=== PATIENT | female | born 1985 | race Caucasian/White ===

== ENCOUNTER 2022-03-13 06:44 | Inpatient (IN) ==
--- NOTE | 2022-03-02 14:07 | History & Physical Report ---
Date of Service March 02, 2022 Assessment & Plan (1) with 39 completed weeks gestation: (2) Breech presentation: Plan: Plan elective . r/b/se of surgery discussed including bleeding, transfusion, infection, poor wound healing, damage to surrounding structures with need for further surgery or hospitalization, injury to baby, heart attack, blood clot, stroke, . Consent reviewed and signed, questions answered. History of Present Illness Chief Complaint: breech Primary Care Provider: Vinayak Armenta DO Patient is a 37yowf at 39 5/7 weeks who presents to labor and delivery for primary c/s for breech. She has declined version. has been essentially uncomplicated. and Delivery Plans AMA Weekly NSTs @ 36 weeks Breech FOB sister had a persistent PDA--had to surgery to close. LEEP 09/06--germaine 3-*NEEDS PAP AT [facility] has had covid vaccine and booster. OB Labs: Blood Type A Positive 08/06/21 Antibody Screen NEGATIVE 08/06/21 Hemoglobin 12.1 g/dL (12.0-16.0) 12/22/21 Hematocrit 33.5 % (37-47) L 12/22/21 Mean Corpuscular Volume 83.8 fL (80-100) 08/06/21 Platelet Count 257 K/uL (130-400)B 08/06/21 Rubella IgG Antibody Immune (Immune) 08/06/21 Rapid Plasma Reagin Nonreactive (Nonreactive) 08/06/21 Hepatitis B Surface Antigen Neg (Neg) 08/06/21 HIV (1&2) Ab and P24 Ag, 4th Gener Neg (Neg) 08/06/21 Glucose 1 Hour 50 gm Load 105 mg/dl (70-130) 12/22/21 Maternal Serum Alpha Fetoprotein 33.6 ng/mL 09/29/21 OB Optional Labs: Chlamydia trachomatis RNA NOT DETECTED (NOT DETECTED) 08/06/21 Neisseria gonorrhoeae RNA NOT DETECTED (NOT DETECTED) 08/06/21 Thyroid Stimulating Hormone (TSH) 1.370 uIu/ml (0.300-4.500) 10/03/18 Alpha Fetoprotein Triple Screen SEE NOTE 09/29/21 Labs Reviewed: low risk panorama--akh cf/sma neg akh gbs neg Allergies Allergy/AdvReac Type Severity Reaction Status Date / Time No Known Drug Allergies Allergy Verified 03/02/22 15:46 latex AdvReac Mild Rash Verified 03/02/22 15:46 Home Medications Medication Instructions Recorded Confirmed Type bupropion HCl 200 mg tablet,12 hr 200 mg PO QAM 10/08/19 03/02/22 History sustained-release hydroxyzine HCl 50 mg tablet 50 mg PO HS 10/08/19 03/02/22 History prenat.vits,cheyanne,uyy-otle-xjwoe PO 07/29/21 03/02/22 History Patient History Medical History (Updated 03/02/22 @ 14:11 by Jailene Arzate MD, FACOG) Anxiety GERMAINE III (cervical intraepithelial neoplasia grade III) with severe dysplasia 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 History of chicken pox Ovarian cyst Surgical History (Updated 03/02/22 @ 14:10 by Jailene Arzate MD, FACOG) H/O LEEP Hx of oral surgery 09/06 Family History Uncle Colorectal cancer Mother Hypertension Grandfather (Maternal) Pancreatic cancer Grandmother (Maternal) Stroke Hypertension Other Dyslipidemia No significant family history Denies family history of Ovarian cancer Breast cancer Social History Smoking Status: Never smoker Second Hand Exposure: No; Hx Alcohol Use: No Hx Substance Use: Yes Preferred Language: Latvian Communication Ability: Effective Visual Impairment: No Limitations Hearing Ability: Normal Beliefs That Will Affect Care: None marital status: marital status details: Naveen Guzman (43)- [phone] Current Living Situation: Spouse Current Living Situation Comment: lives with spouse, 2 dogs current occupational status: employed 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
--- NOTE | 2022-03-10 08:40 | Anesthesiology Consultation ---
Date of Service March 10, 2022 Assessment & Plan (1) Encounter for pre-operative examination: - COVID screening: Per basting machine operator on 03/09/2022: Travel screen negative, no known COVID-19 positive contacts or current COVID-19 related symptoms in past 2 weeks. Pt vaccinated. Surgeon arranging preop COVID testing, scheduled 03/11/2022. Awaiting results. 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 History Surgery Operation Date: 03/13/22 08:50 Proposed Procedures p Section (Delivery of Baby Through Abdominal Incision) - Jailene Arzate MD, FACOG Height/Weight Height: 5 ft 0.75 in Weight: 67.585 kg Allergies Allergy/AdvReac Type Severity Reaction Status Date / Time No Known Drug Allergies Allergy Verified 03/09/22 15:03 latex AdvReac Mild Rash Verified 03/09/22 15:03 Medications Home Medications Medication Instructions Recorded Confirmed Last Taken hydroxyzine HCl 50 mg tablet 50 mg PO HS 10/08/19 03/09/22 10/07/19 bupropion HCl 150 mg 24 hr tablet, 150 mg PO QAM 03/09/22 03/09/22 Unknown extended release vit no.95-ferrous 0.5 tab PO BID 03/09/22 03/09/22 Unknown fumarate 28 mg-folic acid 800 mcg tablet () Past Medical History Medical History Anxiety GERMAINE III (cervical intraepithelial neoplasia grade III) with severe dysplasia Depression 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 History of motion sickness Past Family History Family History Uncle Colorectal cancer Mother Hypertension Grandfather (Maternal) Pancreatic cancer Grandmother (Maternal) Hypertension Stroke Other Dyslipidemia No family history of adverse response to anesthesia No significant family history Denies family history of Ovarian cancer Breast cancer Past Surgical History Surgical History H/O LEEP x2 (local anesthesia) Hx of oral surgery 09/06 Social History Smoking Status: Never smoker Do You Dip or Chew Tobacco: No Hx Alcohol Use: No Hx Substance Use: Yes (recreational) substance use type: marijuana Last Used Substance Other:: april 2021
[~2022-03-13 06:44] MED LIST: CITRIC ACID/SODIUM CITRATE 15 ML UDC PO SCH; LACTATED RINGER'S 1,000 ML IV SCH; ceFAZolin 2,000 MG in SYRINGE 0 ML IV SCH
[2022-03-13] MEDS ORDERED: LACTATED RINGER'S 1,000 ML IV SCH ×2 (07:00→10:45)
--- NOTE | 2022-03-13 07:19 | History & Physical Bridge Note ---
Date of Service March 13, 2022 History & Physical Bridge Note I have examined the patient, reviewed the History & Physical and in the interval since the performance of the History & Physical I have noted the following changes of clinical significance: no changes noted, breech confirmed by ultrasound.
[2022-03-13 07:23] LABS: Basophils # (auto) 0.02 K/uL (0-0.2); Basophils % (auto) 0.2 %; Eosinophils # (auto) 0.06 K/uL (0-0.5); Eosinophils % (auto) 0.6 %; Hematocrit (blood only) 35.4 % (37-47); Hemoglobin 12.4 g/dL (12.0-16.0); Immature Granulocytes # (auto) 0.02 K/uL (0.00-0.02); Immature Granulocytes % (auto) 0.2 %; Lymphocytes # (auto) 2.42 K/uL (1.2-3.4); Mean Corpuscular Hemoglobin 30.5 pg (25-34); Mean Platelet Volume 11.2 fL (7.4-10.4); Monocytes # (auto) 0.75 K/uL (0.11-0.59); Monocytes % (auto) 7.1 %; Neutrophils # (auto) 7.24 K/uL (1.4-6.5); Neutrophils % (auto) 68.9 %; Platelet Count 195 K/uL (130-400); RDW Coefficient of Variation 13.7 % (11.5-14.5); RDW Standard Deviation 43.4 fL (36.4-46.3); Red Blood Count 4.07 M/uL (4.2-5.4); White Blood Count 10.51 K/uL (4.8-10.8)
[2022-03-13 07:44] LABS: Appearance Urine Cloudy (Clear); Bacteria Urine Automated 4+ (Negative); Bilirubin Urine Negative (Negative); Blood Urine Negative (Negative); Color Urine Yellow; Epithelial Cell Urine Auto >30 /lpf (0-5); Glucose Urine UA Negative (Negative); Ketones Urine 2+ (Negative); Leukocyte Esterase Urine 3+ (Negative); Nitrite Urine Negative (Negative); Protein Urine Negative (Negative); RBC Urine Automated 0-4 /hpf (0-4); Specific Gravity Urine 1.015 (1.000-1.030); Urobilinogen Urine Negative (Negative); WBC Urine Automated >30 /hpf (0-5); pH Urine 5.5 (4.5-7.5)
[2022-03-13] MEDS ORDERED: MoRPHine SULFATE PF 1 MG/ML 10 ML AMP/VIAL ONE (09:18)
[2022-03-13] MEDS ORDERED: OXYTOCIN 10 UNITS/ML VIAL ONE (09:20)
[2022-03-13] MEDS ORDERED: ONDANSETRON INJ 2 MG/ML 2 ML VIAL ONE (10:04)
[2022-03-13] MEDS ORDERED: KETOROLAC 30 MG/ML VIAL ONE (10:04)
[2022-03-13] MEDS ORDERED: OXYTOCIN 10 UNITS/ML 10ML VIAL ONE ×2 (10:04→10:05)
[2022-03-13] MEDS ORDERED: PHENYLEPHRINE 100MCG/ML 5ML SYR ONE (10:04)
[2022-03-13] MEDS ORDERED: CARBOPROST TROMETHAMINE 250 MCG/ML AMPUL IM ONE (10:07)
--- NOTE | 2022-03-13 10:20 | Operative Report ---
PG Post Operative Report Pre & Post Diagnosis Operation Date: 03/13/22 08:50 Pre-Op Diagnosis: 1. at 39 weeks 2. Breech Presentation Post-Op Diagnosis: Same I identified the patient and participated in the time-out.: Yes Procedure Operation Date: 03/13/22 08:50 Actual Procedures p Primary low transverse Section with the of a live male child at 0943 - Jailene Arzate MD, FACOG Surgeon Jailene Arzate MD, FACOG Iron Erector Cruz Garrison, PGY 1 Estimated Blood Loss 600 Findings Consistent with Post-Op Diagnosis viable male , rsa, Apgars 8/9. nl uterus/tubes/ovs bilaterally Fluids 1000cc Specimens placenta Drains lincoln Anesthesia Type Spinal Complications none Disposition Accompanied Patient To Recovery: Yes Disposition: L&D Indications at 39 5/7 weeks with breech presentation Description of Procedure The patient was taken to the operating room where she was identified verbally and by bracelet. She was seated on the operating table where a spinal anesthe tic was placed by anesthesia. She was then placed in the supine position with a leftward tilt. A Lincoln catheter was placed sterilely. the patient was prepped and draped in a normal standard fashion. the anesthetic was tested and found to be adequate. A time-out was held, identifying correct patient, procedure, positioning and preoperative antibiotics. There were no concerns. A Pfannenstiel skin incision was made with a knife and taken down to the underlying layer of fascia with the knife and Bovie electrocautery. Bleeding was attended to with the Bovie. The fascia was incised in the midline with the knife and taken out laterally with scissors. The superior edge of the fascial incision was grasped, elevated and the underlying layer of rectus muscle was taken off bluntly and with scissors. In a similar fashion, the inferior edge of the fascial incision was grasped, elevated and the underlying layer of rectus muscle was taken off bluntly and with scissors. The muscles were bluntly in the midline. The peritoneum was entered bluntly. The incision was then stretched. The bladder blade was placed. The vesicouterine peritoneum was identified, entered with scissors and taken out laterally with scissors. The bladder flap was created digitally A hysterotomy incision was scored with a knife and the incision was stretched superiorly and inferiorly with the operato r's fingers. The operators hand was placed into the incision and the head was delivered atraumatically. No nuchal cord. The nose and mouth were bulb suctioned. the rest of the was then delivered without difficulty. The nose and mouth were again bulb suctioned. The cord was clamped and cut and the was then handed off to the awaiting behaviorist for drying and attention. Cord blood and segment were obtained. The placenta was Manually extracted. The uterus was exteriorized and cleared of all clot and debris with moistened laparotomy sponges. The hysterotomy incision was repaired in two layers, the first in a running locked layer, the second in an imbricating layer. Hemostasis was noted to be good. Posterior cul-de-sac was irrigated and cleared of all clot and debris. The hysterotomy incision was again inspected and found to be hemostatic. the uterus was reinteriorized. Hysterotomy incision was again inspected and found to be hemostatic. Rectus muscles were reapproximated with several interrupted stitches of 0 Vicryl. The fascia was then reapproximated with 0 Vicryl starting at the edges and meeting in the midline. The subcuticular tissues were copiously irrigated and bleeding was attended to with cautery. The skin was then closed with 4-0 Vicryl in a subcuticular fashion. All sponge, lap and needle counts were correct x 2. Patient taken to the recovery room in stable condition. I attest to the content of the Intraoperative Record and any orders documented therein. Any exceptions are noted below. OB Procedure Charges [id number]
[2022-03-13 10:22] LABS: Base Excess Cord Arterial Bld -2.4 mEq/L (-9-1.8); CO2 Cord Arterial Blood 65 mmHg (39.1-73.5); HCO3 Cord Arterial Blood 27 mmol/L (19.7-28.5); PO2 Cord Arterial Blood 12 mmHg (4.1-31.7); pH Cord Arterial Blood 7.23 (7.1-7.38)
[2022-03-13] MEDS ORDERED: PROMETHAZINE HCL 6.25 MG in SODIUM CHLORIDE 0.9% 50 ML IV PRN (10:25)
[2022-03-13] MEDS ORDERED: LACTATED RINGER'S 500 ML IV PRN (10:25)
[2022-03-13] MEDS ORDERED: MoRPHine SULFATE PF 1 MG/ML 10 ML AMP/VIAL INT SPINAL ONE (10:25)
[2022-03-13] MEDS ORDERED: NALOXONE HCL 0.08 MG in SYRINGE 1.8 ML IV PRN (10:25)
[2022-03-13] MEDS ORDERED: diphenhydrAMINE 50 MG/ML VIAL IV PRN (10:25)
[2022-03-13] MEDS ORDERED: NALOXONE HCL 1 MG in SODIUM CHLORIDE 0.9% 1000ML 1,000 ML IV PRN (10:25)
[2022-03-13] MEDS ORDERED: MoRPHine SULFATE 2 MG/ML CARP IV PRN (10:25)
[2022-03-13] MEDS ORDERED: ePHEDrine sulfate 50 MG/ML AMP IV PRN (10:25)
[2022-03-13] MEDS ORDERED: NALOXONE HCL 0.4 MG/1 ML VIAL/CARP IV PRN (10:25)
[2022-03-13] MEDS ORDERED: NALBUPHINE HCL INJ 10 MG/ML AMP IV PRN (10:25)
[2022-03-13] MEDS ORDERED: KETOROLAC 30 MG/ML VIAL IV PRN (10:26)
[2022-03-13 10:28] LABS: Base Excess Cord Venous Blood -1.5 mEq/L (-7.7-1.9); Cord Venous Blood HCO3 27 mmol/L (18.4-26.8); Cord Venous Blood PCO2 58 mmHg (30.4-57.2); Cord Venous Blood PO2 11 mmHg (14.1-43.3); Cord Venous Blood pH 7.27 (7.20-7.44)
--- NOTE | 2022-03-13 10:28 | Anesthesiology Progress Note ---
Date of Service March 13, 2022 Anesthesia Post Procedure Vital Signs Vital Signs: Temp Pulse Resp BP Pulse Ox 03/13/22 10:25 77 97 03/13/22 10:21 74 97/63 L 03/13/22 10:20 77 95 03/13/22 10:19 76 93 03/13/22 10:16 75 100/60 03/13/22 10:15 78 96 03/13/22 09:16 83 98 03/13/22 07:20 36.7 C 82 16 107/67 03/13/22 07:05 82 107/67 Transfer of Care Handoff Completed per policy Notes Mental Status: alert / awake / arousable Nausea / Vomiting: adequately controlled Pain: adequately controlled Airway Patency, RR, SpO2: stable & adequate BP & HR: stable & adequate Hydration State: stable & adequate Neuraxial Anesthesia: was administered and sensory block is resolving Anesthetic Complications: no major complications apparent and Pt Satisfied with anesthetic care
[2022-03-13] MEDS ORDERED: SODIUM CHLORIDE 0.9% 1000ML 1,000 ML IV SCH (10:30)
[2022-03-13] MEDS ORDERED: DC INTRASPINAL MORPHINE SCH (10:30)
[2022-03-13] MEDS ORDERED: NO NARCOTICS OR SEDATIVES SCH (10:30)
[2022-03-13 10:31] LABS: O2 Saturation Cord Venous Bld < 60.0 % (<68); Oxygen Sat Cord Arterial Blood < 60.0 % (<60)
[2022-03-13] MEDS ORDERED: SENNA 8.6 MG TAB PO PRN (10:45)
[2022-03-13] MEDS ORDERED: MAGNESIUM HYDROXIDE SUSP 30 ML UDC PO PRN (10:45)
[2022-03-13] MEDS ORDERED: ONDANSETRON INJ 2 MG/ML 2 ML VIAL IV PRN (10:45)
[2022-03-13] MEDS ORDERED: DIPHTHERIA/TETANUS/PERTUSSIS 0.5 ML SYR/VIAL IM ONE (10:45)
[2022-03-13] MEDS ORDERED: BENZOCAINE 20% AER SPR 82.5 GM CAN EXT PRN (10:45)
[2022-03-13] MEDS ORDERED: HYDROCORTISONE ACETATE 25 MG SUPP PR PRN (10:45)
[2022-03-13] MEDS ORDERED: MEPERIDINE HCL 50 MG/ML CARP IV PRN (10:45)
[2022-03-13] MEDS ORDERED: OXYTOCIN 20 UNITS in LACTATED RINGER'S 1,000 ML IV SCH (11:00)
[2022-03-13] MEDS: SIMETHICONE 80 MG CHEW PO SCH ×3 (17:39→21:17)
[2022-03-13] MEDS: DOCUSATE SODIUM 100 MG CAP PO SCH (20:32)
[2022-03-13] MEDS: IBUPROFEN 600 MG TAB PO PRN (21:40)
[2022-03-14] MEDS: IBUPROFEN 600 MG TAB PO PRN ×3 (04:24→16:22)
[2022-03-14] MEDS ORDERED: diphenhydrAMINE Capsule 25 MG CAP PO PRN (04:26)
[2022-03-14] MEDS ORDERED: PROMETHAZINE HCL 25 MG in SODIUM CHLORIDE 0.9% 50 ML IV PRN (04:26)
[2022-03-14] MEDS ORDERED: diphenhydrAMINE 50 MG/ML VIAL IV PRN (04:26)
[2022-03-14] MEDS ORDERED: KETOROLAC 30 MG/ML VIAL IV PRN (04:26)
--- NOTE | 2022-03-14 06:16 | Obstetrical Progress Note ---
Date of Service <Oscar Garrison MD - Last Filed: 03/14/22 08:29> March 14, 2022 Assessment & Plan <Oscar Garrison MD - Last Filed: 03/14/22 08:29> (1) delivery delivered: 37 yo now POD1 from [facility] at 39wk5d for breech presentation -Continue routine care -Vitals reviewed- HDS, afebrile -Encourage ambulation -Encourage -Pain control with ibuprofen, oxycodone PRN -Hgb 12.5, stable <Faheem Bland MD - Last Filed: 03/17/22 08:24> (1) delivery delivered: Subjective <Oscar Garrison MD - Last Filed: 03/14/22 08:29> Ambulation: ambulating normally Voiding: no voiding problems (lincoln removed earlier this AM) Passing Gas:: Yes Diet Tolerance:: regular diet Lochia:: Small Feeding Type:: bottle feeding (pumping) Current Pain Level(1-10): 0 Pt doing well overall, no acute complaints or distress. Pain well controlled with medication. Review of Systems Denies fever/chills. Denies dyspnea, cough. Denies chest pain. Denies breast pain or discharge. Denies dysuria. Denies headache. Denies back pain. Physical Exam <Oscar Garrison MD - Last Filed: 03/14/22 08:29> General: Alert, oriented, no acute distress Cardiac: Regular rate and rhythm, normal S1, S2. No murmurs noted. Respiratory: Clear to auscultation b/l with good air flow entry, symmetric chest rise and fall. No wheezes or crackles. No increased work of breathing or accessory muscle use. Abdomen: Soft, nontender, nondistended. Fundus firm and palpable at 2 cm below umbilicus. Surgical dressing clean, dry and intact without overlying erythema, warmth or drainage. No guarding or rebound. Skin: No rashes or lesions Extremities: Warm, dry and well-perfused with capillary refill <2s b/l. No lower extremity edema, erythema or swelling, no calf tenderness b/l Results & Data ([facility]) <Oscar Garrison MD - Last Filed: 03/14/22 08:29> Vital Signs (Past 12 Hours) Vital Signs Temp Pulse Resp BP Pulse Ox 03/14/22 04:45 36.8 C 74 18 96/63 L 95 03/14/22 04:00 18 98 03/14/22 03:00 18 99 03/14/22 02:00 18 98 03/14/22 01:00 18 96 03/14/22 00:00 36.4 C L 77 18 94/60 L 95 03/13/22 23:00 18 95 03/13/22 22:09 18 100 03/13/22 21:30 18 95 03/13/22 20:30 18 97 03/13/22 19:30 36.8 C 76 18 99/65 L 100 03/13/22 18:19 16 100 <Faheem Bland MD - Last Filed: 03/17/22 08:24> Co-Signing Physician Notes Patient seen and evaluated and agree with the above findings and plan. Routine care. Resident Activity Tracking <Oscar Garrison MD - Last Filed: 03/14/22 08:29> Resident Involvement: Resident Care Provided Care Provided: OB Delivery
[2022-03-14] MEDS: oxyCODONE/ACETAMINOPHEN 5mg/325mg TAB PO PRN ×4 (07:33→20:46)
[2022-03-14] MEDS: FERROUS SULFATE 325 MG TAB PO SCH (07:33)
[2022-03-14] MEDS: DOCUSATE SODIUM 100 MG CAP PO SCH ×2 (07:33→20:46)
[2022-03-14] MEDS: PRENATAL VITAMIN 1 TAB PO SCH (07:33)
[2022-03-14] MEDS: SIMETHICONE 80 MG CHEW PO SCH ×4 (07:33→20:46)
[2022-03-14 08:06] LABS: Basophils # (auto) 0.03 K/uL (0-0.2); Basophils % (auto) 0.2 %; Eosinophils % (auto) 0.8 %; Hematocrit (blood only) 35.8 % (37-47); Hemoglobin 12.5 g/dL (12.0-16.0); Immature Granulocytes # (auto) 0.03 K/uL (0.00-0.02); Immature Granulocytes % (auto) 0.2 %; Lymphocytes # (auto) 2.14 K/uL (1.2-3.4); Lymphocytes % (auto) 16.5 %; Mean Corpuscular Hemoglobin 30.9 pg (25-34); Mean Corpuscular Hgb Conc 34.9 g/dL (32-36); Mean Corpuscular Volume 88.6 fL (80-100); Mean Platelet Volume 11.7 fL (7.4-10.4); Monocytes # (auto) 0.82 K/uL (0.11-0.59); Monocytes % (auto) 6.3 %; Neutrophils # (auto) 9.85 K/uL (1.4-6.5); Platelet Count 207 K/uL (130-400); RDW Coefficient of Variation 13.8 % (11.5-14.5); RDW Standard Deviation 45.2 fL (36.4-46.3); Red Blood Count 4.04 M/uL (4.2-5.4); White Blood Count 12.97 K/uL (4.8-10.8)
[2022-03-14] MEDS: buPROPion XL 150 MG TABCR PO SCH (10:18)
[2022-03-14] MEDS ORDERED: bisacodyL 5 MG TABEC PO SCH (20:00)
[2022-03-14] MEDS ORDERED: hydrOXYzine HCl 25 MG TAB PO SCH ×2 (21:00)
[2022-03-15] MEDS: IBUPROFEN 600 MG TAB PO PRN ×3 (00:54→10:51)
[2022-03-15 06:21] LABS: Hematocrit (blood only) 31.4 % (37-47); Hemoglobin 10.9 g/dL (12.0-16.0)
[2022-03-15] MEDS: PRENATAL VITAMIN 1 TAB PO SCH (07:47)
[2022-03-15] MEDS: buPROPion XL 150 MG TABCR PO SCH (07:48)
[2022-03-15] MEDS: oxyCODONE/ACETAMINOPHEN 5mg/325mg TAB PO PRN (07:48)
[2022-03-15] MEDS: SIMETHICONE 80 MG CHEW PO SCH (07:48)
[2022-03-15] MEDS: FERROUS SULFATE 325 MG TAB PO SCH (07:48)
[2022-03-15] MEDS: DOCUSATE SODIUM 100 MG CAP PO SCH (07:48)
--- NOTE | 2022-03-15 08:19 | Obstetrical Progress Note ---
Date of Service March 15, 2022 Assessment & Plan (1) delivery delivered: Doing well. Plan d/c. A+. Instructions given. Call with concerns. Subjective Ambulation: ambulating normally Voiding: no voiding problems Passing Gas:: Yes Diet Tolerance:: regular diet Lochia:: Small Feeding Type:: breast feeding Pain controlled. Notes some occasional chest pressure and back pain. Attributes both to the bed. Feels overall well. Physical Exam Constitutional WD/WN, vitals as above Respiratory normal respiratory effort, lungs clear to auscultation Cardiovascular RRR, no murmur, no edema Extremities: no calf tenderness and no edema Gastrointestinal (Abdomen) soft, nt, nd, ff/nt at u incision c/d/i Psychiatric A+Ox3, euthymic affect Results & Data ([facility]) Vital Signs (Past 12 Hours) Vital Signs Temp Pulse Resp BP Pulse Ox 03/15/22 01:00 36.4 C L 65 18 100/68 97 03/14/22 20:45 36.9 C 70 20 105/69 97
[2022-03-15] MEDS ORDERED: bisacodyL 10 MG SUPP PR PRN (10:11)
--- NOTE | 2022-03-17 07:52 | Discharge Summary ---
Date of Service March 17, 2022 Admission HPI Per Admitting Provider Patient is a 37yowf at 39 5/7 weeks who presents to labor and delivery for primary c/s for breech. She has declined version. has been essentially uncomplicated. and Delivery Plans AMA Weekly NSTs @ 36 weeks Breech FOB sister had a persistent PDA--had to surgery to close. LEEP 09/06--beth 3-*NEEDS PAP AT [facility] has had covid vaccine and booster. OB Labs: Blood Type A Positive 08/06/21 Antibody Screen NEGATIVE 08/06/21 Hemoglobin 12.1 g/dL (12.0-16.0) 12/22/21 Hematocrit 33.5 % (37-47) L 12/22/21 Mean Corpuscular Volume 83.8 fL (80-100) 08/06/21 Platelet Count 257 K/uL (130-400) 08/06/21 Rubella IgG Antibody Immune (Immune) 08/06/21 Rapid Plasma Reagin Nonreactive (Nonreactive) 08/06/21 Hepatitis B Surface Antigen Neg (Neg) 08/06/21 HIV (1&2) Ab and P24 Ag, 4th Gener Neg (Neg) 08/06/21 Glucose 1 Hour 50 gm Load 105 mg/dl (70-130) 12/22/21 Maternal Serum Alpha Fetoprotein 33.6 ng/mL 09/29/21 OB Optional Labs: Chlamydia trachomatis RNA NOT DETECTED (NOT DETECTED) 08/06/21 Neisseria gonorrhoeae RNA NOT DETECTED (NOT DETECTED) 08/06/21 F Thyroid Stimulating Hormone (TSH) 1.370 uIu/ml (0.300-4.500) 10/03/18 Alpha Fetoprotein Triple Screen SEE NOTE 09/29/21 Labs Reviewed: low risk panorama--ak cf/sma neg [facility] gbs neg Discharge Data Consultations 03/13/22 06:57 Consult Anesthesiology Stat Procedures Performed Operation Date: 03/13/22 08:50 Actual Procedures p Section with the of a live male child at 0943 - Jailene Arzate MD, [facility] Hospital Course (1) delivery delivered: (2) Breech presentation: Patient was admitted and underwent a primary low transverse without complications. NOrmal anatomy noted. /postop course uncomplicated. Tolerated regular diet, voided after removal of lincoln, tolerated pain with oral pain meds, ambulated. She was d/c home on day 2. Stable h/h. Coding Level of Care Code None Diagnoses delivery delivered O82 Breech presentation O32.1XX0
== END 2022-03-15 12:00 | disposition home or self-care (01) | DRG 788 ==
LOC: 4S1 06:44 → EDSTATUS 08:50 → 4E2 12:50